=== PATIENT | female | born 1945 | race Caucasian/White ===

== ENCOUNTER 2018-01-20 13:06 | Emergency (ER) | payer MEDICARE ==
[~2018-01-20] VITALS: Ht 160 cm; Wt 84.0 kg
[~2018-01-20 13:06] MED LIST: ASPI-496 PO; ASPI-621 PO; ASPI-691 PO; ASPI325T17 PO; ATOR-2 PO; ATOR10TA9 PO; CARV6.2512 PO; CEPH-376 PO; CHOL100012 PO; DIAZ5TAB4 PO; FLUO20CA8 PO; LEVO125T5 PO; LOSA50TA7 PO; MULT-658 PO; NITR0.4T SL; OXYB5TAB7 PO; OXYC1TAB7 PO; PRAS10TA4 PO; PROP20TA PO; VERA180T56 PO; VERA240T86 PO; VITA150T PO; [UNRECOGNIZED DRUG - OTHER] PO
[2018-01-20 15:00] VITALS: BP 156/93
[2018-01-20 15:06] LABS: BASOPHILS # (AUTO) 0.03 x10^3/uL (0-0.1); BASOPHILS % (AUTO) 0 % (0-1); EOSINOPHILS # (AUTO) 0.03 x10^3/uL (0-0.4); EOSINOPHILS % (AUTO) 0 % (1-7); LYMPHOCYTES # (AUTO) 1.84 x10^3/uL (1-3.4); LYMPHOCYTES % (AUTO) 12 % (22-44); MD NO; MEAN CORPUSCULAR HGB CONC 33.3 g/dL (32.4-35.8); MEAN PLATELET VOLUME 6.8 fL (7.4-10.4); MONOCYTES # (AUTO) 0.87 x10^3/uL (0.2-0.8); MONOCYTES % (AUTO) 6 % (2-9); NEUTROPHILS # (AUTO) 12.28 x10^3/uL (1.8-6.8); NEUTROPHILS % (AUTO) 82 % (42-75); PLATELET COUNT 424 x10^3/uL (130-400); RED BLOOD COUNT 4.19 x10^6/uL (3.82-5.3); RED CELL DISTRIBUTION WIDTH 14.7 % (9.6-15.2)
[2018-01-20 15:16] LABS: ALANINE AMINOTRANSFERASE 71 U/L (12-78); ALBUMIN 3.6 g/dL (3.4-5.0); ANION GAP 10 mmol/L (5-15); CALCIUM 8.6 mg/dL (8.5-10.1); CHLORIDE 103 mmol/L (98-107); CREATININE 0.89 mg/dL (0.55-1.02)
[2018-01-20 15:20] LABS: ALKALINE PHOSPHATASE 120 U/L (45-117); BILIRUBIN,TOTAL 0.4 mg/dL (0.2-1.0); TOTAL PROTEIN 7.4 g/dL (6.4-8.2); TROPONIN I < 0.015 ng/mL (0.000-0.045)
[2018-01-20 15:32] LABS: INTERNATIONAL NORMALIZED RATIO 1.01 (0.93-1.1); PROTHROMBIN TIME 10.7 Seconds (9.6-11.5)
== END 2018-01-20 17:02 | disposition home or self-care (01) ==
LOC: ED 16:13
DX: I10 Essential (primary) hypertension (principal); I25.2 Old myocardial infarction; J44.9 Chronic obstructive pulmonary disease, unspecified; C50.919 Malignant neoplasm of unspecified site of unspecified female breast
CPT/HCPCS: 36415; 71045; 80053; 84484; 85025; 85610; 85730; 93005; 99284

== ENCOUNTER → 2019-06-01 | Outpatient (CLI) | payer MEDICARE ==
[~2019-06-01] MED LIST changes: -ASPI-621 PO; +ASPI81TA45 PO; +FLUO20CA23 PO; -FLUO20CA8 PO; +LOSA50TA14 PO; -LOSA50TA7 PO; -NITR0.4T SL; +NITR0.4T41 SL; +OXYB5TAB10 PO; -OXYB5TAB7 PO; +REGADENOSON 0.4 MG/5 ML SYRINGE ONE; -VERA180T56 PO; +VERA180T6 PO; +VERA240T10 PO; -VERA240T86 PO
== END | disposition home or self-care (01) ==
LOC: CFH 07:49
PROVIDERS: ATTEND Registered Nurse
DX: I77.810 Thoracic aortic ectasia (principal); I25.10 Atherosclerotic heart disease of native coronary artery without angina pectoris; I10 Essential (primary) hypertension; I25.2 Old myocardial infarction; E78.5 Hyperlipidemia, unspecified
CPT/HCPCS: 78452; 93017; 93306; A9502; J2785

== ENCOUNTER 2020-04-02 12:34 | Emergency (ER) | payer MEDICARE ==
[~2020-04-02] VITALS: Ht 160 cm; Wt 92.4 kg
[~2020-04-02 12:34] MED LIST changes: -REGADENOSON 0.4 MG/5 ML SYRINGE ONE
[2020-04-02] MEDS ORDERED: LIDOCAINE 2%,20 ML JEL.PF.APP MM ONE (13:25)
[2020-04-02 13:37] LABS: BASOPHILS % (AUTO) 1 % (0-1); EOSINOPHILS % (AUTO) 8 % (1-7); LYMPHOCYTES % (AUTO) 16 % (22-44); MEAN CORPUSCULAR HEMOGLOBIN 28.2 pg (27.0-34.8); MEAN PLATELET VOLUME 6.8 fL (7.4-10.4); MONOCYTES % (AUTO) 7 % (2-9); NEUTROPHILS % (AUTO) 68 % (42-75); PLATELET COUNT 436 x10^3/uL (130-400); RED BLOOD COUNT 4.15 x10^6/uL (3.82-5.3)
--- NOTE | 2020-04-02 13:38 | NUR ---
pt in bed with no signs or symptoms of acute distress noted respirations even and unlabored. rn in room to straight cath for urine. pt tolerated procedure well, left in position of comfort with a glass of ice water at bedside, monitor in place, and bed rails up bilaterally. call light within reach. sample carried to lab.
[2020-04-02 13:39] VITALS: BP 139/83
[2020-04-02 13:41] LABS: ALBUMIN 3.2 g/dL (3.4-5.0); ANION GAP 5 mmol/L (5-15); CALCIUM 8.7 mg/dL (8.5-10.1); CHLORIDE 113 mmol/L (98-107); CREATININE 0.68 mg/dL (0.55-1.02)
[2020-04-02 13:46] LABS: MICROSCOPIC NOT IND
[2020-04-02 13:57] LABS: MD NO
--- NOTE | 2020-04-02 14:00 | NUR ---
PRECEPTOR RN: ALL RESULTS ARE BACK AT THIS TIME. CHART UP FOR RECHECK.
--- NOTE | 2020-04-02 14:15 | NUR ---
pt in bed with no signs or symptoms of acute distress noted respirations even and unlabored provider in room to assess.
[2020-04-02] MEDS ORDERED: DIAZEPAM 5 MG TABLET ONE (14:19)
[2020-04-02] MEDS ORDERED: KETOROLAC 30 MG/1 ML ONE (14:19)
[2020-04-02] MEDS ORDERED: DIAZEPAM 5 MG TABLET PO ONE (14:30)
[2020-04-02] MEDS ORDERED: KETOROLAC 30 MG/1 ML IM ONE (14:30)
== END 2020-04-02 15:18 | disposition home or self-care (01) ==
LOC: ED 14:17
DX: S39.012A Strain of muscle, fascia and tendon of lower back, initial encounter (principal); J44.9 Chronic obstructive pulmonary disease, unspecified; I10 Essential (primary) hypertension; I25.2 Old myocardial infarction; X58.XXXA Exposure to other specified factors, initial encounter; Z87.891 Personal history of nicotine dependence; Y93.89 Activity, other specified; Y92.89 Other specified places as the place of occurrence of the external cause; Y99.8 Other external cause status
CPT/HCPCS: 36415; 80048; 81003; 82040; 85025; 96372; 99283; J1885

== ENCOUNTER → 2020-05-02 | Outpatient (CLI) | payer MEDICARE | END | disposition home or self-care (01) | LOC: CFH 12:59 | PROVIDERS: ATTEND Internal Medicine Cardiovascular Disease | DX: I11.9 Hypertensive heart disease without heart failure (principal); I25.10 Atherosclerotic heart disease of native coronary artery without angina pectoris | CPT/HCPCS: 93306 ==